=== PATIENT | male | born 1950 | race Caucasian/White ===

== ENCOUNTER 2024-10-02 10:15 | Emergency (ER) | payer MEDICARE, MEDICAID ==
[~2024-10-02] VITALS: Ht 167.6 cm; Wt 58.0 kg
[2024-10-02] MEDS ORDERED: TRIA15CR61 TOP (11:45)
[2024-10-02] MEDS ORDERED: METH4TAB81 PO (11:45)
--- NOTE | 2024-10-02 11:45 | Physician Documentation ---
History of Present Illness ~ Chief Complaint: Rash Stated Complaint: SKIN ISSUE Time Seen by MD: 10:54 OK to notify your PCP?: Yes Source: patient Mode of Arrival: POV Exam Limitations: no limitations HPI 74-year-old male who is here with rash on hands and arms bilaterally which he attributes to an eczema flare up. he has a very long history of eczema and states this happened several years ago and he was given a steroid injection which resolved his issues. He states the rash is itchy but the itching is worse at night. He denies any risk factors for scabies states he has lived in his house for many years has not stayed at a hotel any where or at anyone else's house and states he has not gotten any new clothing sheets or bedding. Patient denies fever, chills, shortness of breath, swelling or pain. Medication Reconciliation Allergies: Coded Allergies: No Known Allergies (Unverified , 10/02/24) Scheduled Methylprednisolone (Medrol Dosepak), 0 PO UD Triamcinolone Acetonide 0.5% Crm* (Kenalog 0.5% Crm*), 1 APPLIC TOP Q12H Past Medical History Past Medical History: No Pertinent History Past Surgical History: noncontributory Drug Use: none Lives In: Home Review of Systems All Other Systems at this time: Reviewed and Negative Physical Exam Vital Signs: Temperature: 98.2, Source: Temporal, Heart Rate: 77, Respiratory Rate: 15, BP: 176/80, Pulse Oximetry: 100, Weight: 58.050 Physical Exam General Appearance: Alert, WD/WN. NAD. HEENT: NCAT, PERRL, EOMI. Dome shaped skin colored well defined nodule on face just lateral to left eye with central punctum/hyperkeratotic area. No erythema. Neck: Supple, trachea midline. Cardiovascular: RRR. No m/r/g. Lungs: CTAB. Breathing unlabored Extremities: Excoriated areas on hands and forearms with fissures and papules, no pustules. AROM of hands full. No edema. Skin: Warm/dry, normal color Neurological: Alert and oriented x4, normal gait. Psychiatric: Affect congruent with mood. Progress Results/Orders Results/Orders Completed Orders - KRYSTAL VASQUEZ Triamcinolone Acet 40mg/Ml Inj (Kenalog- (10/02/24 11:50) Medications Received in ER Medications (Trade) Dose Ordered Sig/Bird Route PRN Reason Start Time Stop Time Status Last Admin Dose Admin (Kenalog-40 inj) 60 mg ONCE ONCE IM 10/02/24 11:50 10/02/24 11:51 DC 10/02/24 12:13 60 MG Vital Signs 10/02/24 10:16 Temp 98.2 Pulse 77 Resp 15 B/P (MAP) 176/80 Pulse Ox 100 Medical Decision Making Differential Dx:Considerations: Include: Abscess, AIDS/HIV, Anthrax (cutaneous), Atopic dermatitis, Candidiasis, Contact dermatitis, Drug reaction, Erythema multiforme, Erysipelas, Gangrene, Herpes zoster, Herpes simplex, Hidradenitis suppurativa, Impetigo, Intertrigo, Lymes disease, Molluscum contagiosum, Osteomyelitis, Pediculosis, Pityriasis rosea, Psoriaisis, RMSF, Rosacea, Scabies, Scarlet fever, Tinea, Urticaria, Varicella, Viral exanthema Departure Time of Disposition: 11:41 Disposition: 01 HOME / SELF CARE / HOMELESS Impression: Primary Impression: Scabies infestation Additional Impressions: Eczema herpeticum Keratoacanthoma Condition: Stable Discharge Instructions: Eczema Additional Instructions: We discussed my concern about possible scabies since it started on your hands and spread upward towards your elbows in the itching is worse at night but your adamant that this is very consistent with your eczema and eczema may certainly be the cause. You do not have any risk factors for scabies in terms of staying in any hotels or buying any new bedding or clothing; however, if the steroids do not provide any relief of your symptoms then return to the ER for re-evaluation. I sent a prescription of prednisone and topical steroid to your pharmacy and we also gave you a steroid shot here. You will not start the oral steroids until tomorrow since he got a shot here. Make sure to follow up with the college admissions counselor regarding the finding on your face as this is associated with squamous cell carcinoma needs to be confirmed and treated by a college admissions counselor AFTER I DID PATIENT'S DISCHARGE PAPERS IN THE NURSE WAS REVIEWING THE DISCHARGE PAPERS WITH THE PATIENT THE PATIENT STATED I THINK THAT SHE IS RIGHT I DO THINK THAT I HAVE SCABIES" THUS I SENT A PRESCRIPTION FOR PERMETHRIN TO HIS PHARMACY. NURSE ALSO EDUCATED ON WASHING BEDDING/CLOTHING. Referrals: NO PRIMARY CARE PROVIDER (PCP) Prescriptions Permethrin 5% Cream* (Elimite 5% Cream*) 60 Gm Cream.gm. 1 APPLIC TOP ONCE, #60 GM massage into skin from head to soles of feet one time, leave on for 8-14 hours then remove by thorough washing Prov: KRYSTAL VASQUEZ 10/02/24 Triamcinolone Acetonide 0.5% Crm* (Kenalog 0.5% Crm*) 15 Gm Tube 1 APPLIC TOP Q12H for 30 Days, #60 GM apply to hands and forearms for itching. Prov: KRYSTAL VASQUEZ 10/02/24 Methylprednisolone (Medrol Dosepak) 4 Mg Tab.ds.pk 0 PO UD, #21 TAB 0 Refills take 6 Pills Day 1, 5 Pills Day 2, 4 Pills Day 3, 3 Pills Day 4, 2 Pills Day 5 and 1 pill Day 6 Prov: KRYSTAL VASQUEZ 10/02/24 Education Educated: Patient Educated regarding: diagnosis, treatment, need for follow up Signature Scribe Signature: x Attestation: KRYSTAL Palumbo Oct 02, 2024 11:45
[2024-10-02] MEDS: triamcinolone acetonide 40mg/ml inj IM ONE (12:13)
[2024-10-02] MEDS ORDERED: PERM60CR27 TOP (12:19)
[2024-10-02 12:28] VITALS: BP 168/80; PULSE 70; RESP 17; TEMP 98.2; O2SAT 99
== END 2024-10-02 12:23 | disposition home or self-care (01) ==
LOC: ER 10:16
DX: B86 Scabies (principal); B00.0 Eczema herpeticum; L85.8 Other specified epidermal thickening
CPT/HCPCS: 96372; 99283; J3301